=== PATIENT | male | born 1965 | race African-American/Black ===

== ENCOUNTER 2017-07-02 16:39 | Emergency (ER) | payer MEDICAID, MEDICARE, OTHER ==
[~2017-07-02] VITALS: Ht 172.7 cm; Wt 85.7 kg
[~2017-07-02 16:39] MED LIST: ARIP15TA2 PO; DIVA500T2 PO
[2017-07-02 16:58] VITALS: BP 143/91
== END 2017-07-02 17:31 | disposition home or self-care (01) ==
LOC: ER 16:46
DX: R10.31 Right lower quadrant pain (principal); M79.631 Pain in right forearm; F12.90 Cannabis use, unspecified, uncomplicated; E11.9 Type 2 diabetes mellitus without complications; F32.9 Major depressive disorder, single episode, unspecified; F20.9 Schizophrenia, unspecified
CPT/HCPCS: 99281; A4606; Z7502; Z7610